=== PATIENT | male | born 1990 | race Caucasian/White ===

== ENCOUNTER 2023-12-29 23:59 | Emergency (ER) | payer BC ==
[2023-12-30 01:50] LABS: BASOPHILS PERCENT AUTO 0.5 % (0.3-3.8); EOSINOPHILS ABSOLUTE AUTO 0.1 x10-3/uL (0.0-0.6); EOSINOPHILS PERCENT AUTO 0.6 % (0.1-6.8); HEMATOCRIT 39.2 % (38.3-50.1); HEMOGLOBIN 13.5 g/dL (12.9-17.7); LYMPHOCYTES ABSOLUTE AUTO 0.9 x10-3/uL (0.5-4.5); LYMPHOCYTES PERCENT AUTO 11.4 % (15.8-45.3); MEAN CORPUSCULAR HEMOGLOBIN 30.8 pg (27.0-33.3); MEAN CORPUSCULAR HGB CONC 34.5 g/dL (28.7-35.3); MEAN CORPUSCULAR VOLUME 89.2 fL (80.8-98.7); MEAN PLATELET VOLUME 9.5 fL (6.7-11.0); MONOCYTES ABSOLUTE AUTO 0.5 x10-3/uL (0.0-1.2); MONOCYTES PERCENT AUTO 6.7 % (5.5-15.2); NEUTROPHILS ABSOLUTE AUTO 6.3 x10-3/uL (1.7-6.9); NEUTROPHILS PERCENT AUTO 80.8 % (40.3-71.8); PLATELET COUNT,PLT 141 x10(3)uL (117-477); RED BLOOD CELL COUNT 4.39 x10(6)uL (3.90-5.90); RED CELL DISTRIBUTION WIDTH 12.1 % (12.4-15.0); WHITE BLOOD CELL COUNT,WBC 7.8 x10-3/uL (3.2-10.1)
[2023-12-30 01:56] LABS: A/G RATIO 0.7; ALANINE AMINOTRANSFERASE,ALT 26 U/L (12-36); ALBUMIN 3.1 g/dL (3.5-5.2); ALKALINE PHOSPHATASE 128 IU/L (56-112); ASPARTATE AMNIOTRANSFERASE,AST 23 IU/L (5-25); BILIRUBIN TOTAL 0.4 mg/dL (0.1-1.3); BLOOD UREA NITROGEN,BUN 87 mg/dL (7-18); BUN/CREATININE RATIO 9.5 (9-20); CARBON DIOXIDE,CO2 19 mmol/L (21-32); EST CRCL DRUG DOSING (CG) 10.52 mL/min; ESTIMATED GFR 7 mL/min (>60); GLUCOSE RANDOM 100 mg/dL (80-116); POTASSIUM,K 3.9 mmol/L (3.5-5.3); PROTEIN TOTAL,TP 7.7 g/dL (6.0-8.0); SODIUM,NA 121 mmol/L (135-145)
[2023-12-30 01:58] LABS: CHLORIDE,CL 85 mmol/L (100-110)
[2023-12-30 01:59] LABS: CALCIUM 5.6 mg/dL (8.6-10.2); CREATININE 9.2 mg/dL (0.70-1.30)
[2023-12-30 02:00] LABS: C-REACTIVE PROTEIN 2.87 mg/dL (<0.50)
[2023-12-30] MEDS: Sodium Chloride 0.9% 1,000 ML IV ONE (02:00)
[2023-12-30] MEDS: LORazepam 2 MG/ML SDV IVPUSH ONE (02:05)
[2023-12-30] MEDS: Ondansetron 4 MG/2 ML SDV IVPUSH ONE (02:05)
[2023-12-30] MEDS: Ketorolac 15 MG/ML SDV IVPUSH ONE (02:06)
[2023-12-30] MEDS: Lidocaine 2% HCl 6 ML Jel ONE (02:16)
[2023-12-30 02:39] LABS: BILIRUBIN,URINE NEGATIVE (NEGATIVE); GLUCOSE,URINE NORMAL (NORMAL); KETONES,URINE NEGATIVE (NEGATIVE); LEUKOCYTE ESTERASE,URINE NEGATIVE (NEGATIVE); NITRITE,URINE NEGATIVE (NEGATIVE); OCCULT BLOOD,URINE MODERATE (NEGATIVE); PROTEIN,URINE 500 mg/dL (NEGATIVE); UROBILINOGEN,URINE NORMAL (NEGATIVE)
[2023-12-30 02:42] LABS: AMORPHOUS SEDIMENT,URINE OCCASIONAL; APPEARANCE,URINE CLEAR (CLEAR); BACTERIA,URINE OCCASIONAL (NS); COLOR,URINE YELLOW (YELLOW); RBC,URINE 0-5 (0-5); SQUAMOUS EPITHELIAL CELLS,UR OCCASIONAL (NS,R,O); WBC,URINE 0-5 (0-5)
[2023-12-30 02:43] LABS: AMPHETAMINES SCREEN, URINE NEGATIVE (NEGATIVE); BARBITURATE SCREEN,URINE NEGATIVE (NEGATIVE); BENZODIAZEPINES SCREEN,URINE NEGATIVE (NEGATIVE); BUPRENORPHINE SCREEN,URINE NEGATIVE (NEGATIVE); METHADONE SCREEN, URINE NEGATIVE (NEGATIVE); METHAMPHETAMINE SCREEN, URINE NEGATIVE (NEGATIVE); OXYCODONE SCREEN,URINE NEGATIVE (NEGATIVE); THC SCREEN,URINE POSITIVE (NEGATIVE)
[2023-12-30 03:50] LABS: PHOSPHORUS 8.5 mg/dL (2.6-4.6)
[2023-12-30 03:51] LABS: CREATINE KINASE,CK > 1000 IU/L (60-160)
[2023-12-30 08:07] LABS: BLOOD UREA NITROGEN,BUN 84 mg/dL (7-18); BUN/CREATININE RATIO 9.3 (9-20); CARBON DIOXIDE,CO2 20 mmol/L (21-32); CHLORIDE,CL 91 mmol/L (100-110); EST CRCL DRUG DOSING (CG) 10.76 mL/min; ESTIMATED GFR 7 mL/min (>60); GLUCOSE RANDOM 93 mg/dL (80-116); PHOSPHORUS 8.2 mg/dL (2.6-4.6); POTASSIUM,K 3.8 mmol/L (3.5-5.3); SODIUM,NA 124 mmol/L (135-145)
[2023-12-30 08:08] LABS: CALCIUM 5.4 mg/dL (8.6-10.2); CREATINE KINASE,CK 1068 IU/L (60-160)
[2023-12-30] MEDS: Lactated Ringers 1,000 ML IV SCH (10:15)
[2023-12-30] MEDS: Calcium Acetate 667 MG Cap PO ONE (10:28)
== END 2023-12-30 15:14 ==
LOC: FB.ED 23:59
DX: N17.9 Acute kidney failure, unspecified (principal); I10 Essential (primary) hypertension
CPT/HCPCS: 36415; 51798; 74176; 80048; 80053; 80307; 81001; 82550; 82947; 83605; 83690; 83735; 84100; 84550; 85025; 86140; 96361; 96365; 96375; 99285; 99285-25; A9270-GY; J1885; J2060; J2405; J3475; J3490; J7030; J7120

== ENCOUNTER 2024-01-03 23:21 | Emergency (ER) | payer BC ==
[2024-01-04] MEDS: Losartan 50 MG Tab PO ONE (01:04)
[2024-01-04] MEDS: NIFEdipine 30 MG Tab.ER PO ONE (01:04)
[2024-01-04] MEDS: Carvedilol 12.5 MG Tab PO ONE (01:04)
[2024-01-04] MEDS: hydrALAZINE 50 MG Tab PO ONE (01:08)
== END 2024-01-04 01:30 | disposition home or self-care (01) ==
LOC: FB.ED 23:21
DX: I12.0 Hypertensive chronic kidney disease with stage 5 chronic kidney disease or end stage renal disease (principal); N17.9 Acute kidney failure, unspecified; N18.6 End stage renal disease; Z99.2 Dependence on renal dialysis; Z79.899 Other long term (current) drug therapy
CPT/HCPCS: 99282; 99283; A9270-GY

== ENCOUNTER 2024-01-07 01:21 | Emergency (ER) | payer BC ==
[2024-01-07 02:16] LABS: HEMOGLOBIN 7.8 g/dL (12.9-17.7); MEAN CORPUSCULAR HGB CONC 35.4 g/dL (28.7-35.3)
[2024-01-07 02:18] LABS: BASOPHILS PERCENT AUTO 0.4 % (0.3-3.8); EOSINOPHILS ABSOLUTE AUTO 0.1 x10-3/uL (0.0-0.6); EOSINOPHILS PERCENT AUTO 0.6 % (0.1-6.8); LYMPHOCYTES PERCENT AUTO 9.3 % (15.8-45.3); MEAN CORPUSCULAR VOLUME 90.4 fL (80.8-98.7); MEAN PLATELET VOLUME 8.3 fL (6.7-11.0); MONOCYTES ABSOLUTE AUTO 1.1 x10-3/uL (0.0-1.2); MONOCYTES PERCENT AUTO 9.8 % (5.5-15.2); NEUTROPHILS ABSOLUTE AUTO 8.9 x10-3/uL (1.7-6.9); NEUTROPHILS PERCENT AUTO 79.9 % (40.3-71.8); PLATELET COUNT,PLT 156 x10(3)uL (117-477); RED BLOOD CELL COUNT 2.43 x10(6)uL (3.90-5.90); RED CELL DISTRIBUTION WIDTH 12.2 % (12.4-15.0); WHITE BLOOD CELL COUNT,WBC 11.2 x10-3/uL (3.2-10.1)
[2024-01-07 02:24] LABS: BLOOD UREA NITROGEN,BUN 79 mg/dL (7-18); CALCIUM 7.3 mg/dL (8.6-10.2); CARBON DIOXIDE,CO2 24 mmol/L (21-32); CHLORIDE,CL 90 mmol/L (100-110); EST CRCL DRUG DOSING (CG) 13.91 mL/min; ESTIMATED GFR 9 mL/min (>60); GLUCOSE RANDOM 119 mg/dL (80-116); HEMATOCRIT 21.9 % (38.3-50.1); POTASSIUM,K 5.6 mmol/L (3.5-5.3); SODIUM,NA 124 mmol/L (135-145)
[2024-01-07 02:25] LABS: CREATININE 7.2 mg/dL (0.70-1.30)
== END 2024-01-07 03:00 | disposition home or self-care (01) ==
LOC: FB.ED 01:21
DX: F41.1 Generalized anxiety disorder (principal); I12.9 Hypertensive chronic kidney disease with stage 1 through stage 4 chronic kidney disease, or unspecified chronic kidney disease; N18.9 Chronic kidney disease, unspecified
CPT/HCPCS: 36415; 80048; 84484; 85025; 93005; 99285

== ENCOUNTER 2024-04-20 13:48 | Emergency (ER) | payer BC ==
[2024-04-20 14:50] LABS: BASOPHILS ABSOLUTE AUTO 0.1 x10-3/uL (0.0-0.3); BASOPHILS PERCENT AUTO 1.2 % (0.3-3.8); EOSINOPHILS ABSOLUTE AUTO 0.1 x10-3/uL (0.0-0.6); EOSINOPHILS PERCENT AUTO 1.7 % (0.1-6.8); HEMATOCRIT 34.5 % (38.3-50.1); HEMOGLOBIN 11.8 g/dL (12.9-17.7); LYMPHOCYTES ABSOLUTE AUTO 1.3 x10-3/uL (0.5-4.5); LYMPHOCYTES PERCENT AUTO 15.4 % (15.8-45.3); MEAN CORPUSCULAR HEMOGLOBIN 32.9 pg (27.0-33.3); MEAN CORPUSCULAR HGB CONC 34.2 g/dL (28.7-35.3); MEAN CORPUSCULAR VOLUME 96.1 fL (80.8-98.7); MEAN PLATELET VOLUME 10.1 fL (6.7-11.0); MONOCYTES ABSOLUTE AUTO 0.6 x10-3/uL (0.0-1.2); MONOCYTES PERCENT AUTO 7.4 % (5.5-15.2); NEUTROPHILS ABSOLUTE AUTO 6.5 x10-3/uL (1.7-6.9); NEUTROPHILS PERCENT AUTO 74.3 % (40.3-71.8); PLATELET COUNT,PLT 89 x10(3)uL (117-477); RED BLOOD CELL COUNT 3.59 x10(6)uL (3.90-5.90); RED CELL DISTRIBUTION WIDTH 15.1 % (12.4-15.0); WHITE BLOOD CELL COUNT,WBC 8.7 x10-3/uL (3.2-10.1)
[2024-04-20 15:06] LABS: A/G RATIO 1.1; ALANINE AMINOTRANSFERASE,ALT 29 U/L (12-36); ALBUMIN 3.9 g/dL (3.5-5.2); ALKALINE PHOSPHATASE 81 IU/L (56-112); ASPARTATE AMNIOTRANSFERASE,AST 16 IU/L (5-25); BILIRUBIN TOTAL 0.5 mg/dL (0.1-1.3); BLOOD UREA NITROGEN,BUN 70 mg/dL (7-18); BUN/CREATININE RATIO 4.2 (9-20); CALCIUM 8.2 mg/dL (8.6-10.2); CARBON DIOXIDE,CO2 24 mmol/L (21-32); CHLORIDE,CL 99 mmol/L (100-110); EST CRCL DRUG DOSING (CG) 6.16 mL/min; ESTIMATED GFR 4 mL/min (>60); GLUCOSE RANDOM 98 mg/dL (80-116); POTASSIUM,K 4.7 mmol/L (3.5-5.3); PROTEIN TOTAL,TP 7.5 g/dL (6.0-8.0); SODIUM,NA 139 mmol/L (135-145)
[2024-04-20 15:08] LABS: INR 0.98 (1.00-1.24); PROTHROMBIN TIME 10.2 sec (9.0-11.1); PTT,PARTIAL THROMBOPLSTIN TIME 25.8 SECONDS (24.4-33.2)
[2024-04-20 15:10] LABS: CREATININE 16.5 mg/dL (0.70-1.30)
[2024-04-20] MEDS: Labetalol 20 MG/4 ML Syringe IVPUSH ONE ×2 (15:19→15:41)
[2024-04-20] MEDS: cloNIDine 0.1 MG Tab PO ONE (17:01)
[2024-04-20] MEDS: hydrALAZINE 20 MG/ML SDV IVPUSH ONE (17:01)
== END 2024-04-20 18:01 | disposition home or self-care (01) ==
LOC: FB.ED 13:48
DX: K92.1 Melena (principal); I12.9 Hypertensive chronic kidney disease with stage 1 through stage 4 chronic kidney disease, or unspecified chronic kidney disease; N18.9 Chronic kidney disease, unspecified
CPT/HCPCS: 36415; 80053; 83690; 85025; 85610; 85730; 96374; 96375; 99283-25; 99284; A9270-GY; J0360; J1920